=== PATIENT | male | born 1970 | race Two or more races ===

== ENCOUNTER 2018-12-30 19:03 | Inpatient (IN) | payer MEDICAID ==
[~2018-12-30] VITALS: Ht 167.6 cm; Wt 76.2 kg
--- NOTE | 2018-12-30 19:39 | NUR ---
PresentS to the ER with shortness of breath. Patient states being evaluated at [facility] 2 days ago, left AMA. Reports moderate SOB at rest has progressively worsened over the last 2 days. lung sounds clear bilaterally on auscultation. ER MD at bedside to eval pt with orders received. Pt. denies chest pain. Pt also reports chronic meth and marijuana use, last use 2 days ago. Pt aaox4, place pt on cardiac monitoring, continuous pox, o2@2L/nc.
[2018-12-30 19:48] LABS: BASOPHILS # (AUTO) 0.1 /CMM (0.0-0.2); BASOPHILS % (AUTO) 0.9 % (0.0-2.0); EOSINOPHILS % (AUTO) 5.1 % (0.0-6.0); HEMATOCRIT 42 % (39-51); HEMOGLOBIN 14.4 g/dL (13.5-17.5); LYMPHOCYTES # (AUTO) 1.3 /CMM (0.8-4.8); LYMPHOCYTES % (AUTO) 16.8 % (20.0-44.0); MEAN CORPUSCULAR HGB CONC 34 g/dl (31.0-36.0); MEAN CORPUSCULAR VOLUME 89 fL (80-96); MONOCYTES # (AUTO) 0.5 /CMM (0.1-1.30); MONOCYTES % (AUTO) 6.9 % (2.0-12.0); NEUTROPHILS # (AUTO) 5.5 /CMM (1.8-8.9); NEUTROPHILS % (AUTO) 70.3 % (43.0-81.0); PLATELET COUNT (AUTO) 217 /CMM (150-450); RED BLOOD CELL COUNT(AUTO) 4.73 MIL/uL (4.5-6.0); WHITE BLOOD COUNT (AUTO) 7.8 K/uL (4.3-11.0)
[2018-12-30] MEDS ORDERED: LORAZEPAM 1 MG TABLET ONE (19:54)
[2018-12-30 19:59] LABS: CALCIUM, SERUM 8.6 mg/dL (8.5-10.1); CREATININE 1.5 mg/dL (0.6-1.3); POTASSIUM 3.9 mmol/L (3.5-5.1)
[2018-12-30] MEDS ORDERED: LORAZEPAM 1 MG TABLET PO ONE (20:00)
--- NOTE | 2018-12-30 20:16 | NUR ---
HANDKERCHIEF PRESSER AT BEDSIDE TO CXR.
[2018-12-30 20:17] LABS: ALBUMIN 3.1 g/dL (3.4-5.0); BILIRUBIN,DIRECT 0.3 mg/dL (0.0-0.2); BILIRUBIN,TOTAL 0.9 mg/dL (0.2-1.0); TOTAL PROTEIN, SERUM 7.2 g/dL (6.4-8.2)
--- NOTE | 2018-12-30 20:38 | NUR ---
ER MD AT BEDSIDE TALKING TO PT REGARDING LAB RESULTS AND HOSPITAL ADMISSION. PT AGREED. AWAITING BED AVAILABILITY.
[2018-12-30] MEDS ORDERED: NITROGLYCERIN PACKET 1 GM PACKET TD ONE (21:00)
[2018-12-30] MEDS ORDERED: FUROSEMIDE 40 MG/4 ML VIAL IV ONE (21:00)
--- NOTE | 2018-12-30 21:06 | NUR ---
[facility] PAGED MICHELLE COVINGTON FOR ADMISSION
[2018-12-30] MEDS ORDERED: NITROGLYCERIN PACKET 1 GM PACKET ONE (21:10)
[2018-12-30] MEDS ORDERED: FUROSEMIDE 40 MG/4 ML VIAL ONE (21:10)
--- NOTE | 2018-12-30 21:24 | NUR ---
ER SPOKE TO MICHELLE COVINGTON ACNP REGARDING PT ADMISSION. WILL CALL FOR REPORT WHEN BED IS AVAILABLE.
--- NOTE | 2018-12-30 21:38 | NUR ---
MICHELLE COVINGTON ACNP AT BEDSIDE TO GRETCHEN UNDERWOOD.
--- NOTE | 2018-12-30 22:01 | NUR ---
REPORT CALLED TO WORK TICKET DISTRIBUTOR JEM. WILL TRANSPORT PT VIA ACLS PROTOCOL.
[2018-12-30 22:15] VITALS: BP 167/117
--- NOTE | 2018-12-30 22:15 | NUR ---
ADMISSION NOTES: RECEIVED REPORT FROM ED RN. PT BROUGHT OT THE UNIT VIA GURNEY, PT KNOCKED OUT, ASLEEP, AROUSES TO TACTILE STIMULI THEN WILL GO BACK TO SLEEP, SNORING, NEL AT BED SIDE, HELPING ME WITH THE ADMISSION. UNABLE TO COLLECT RELEVANT INFORMATION DUE TO PT'S CONDITION/STATUS AT THIS TIME, PT RECEIVED ATIVAN IN ER. RIGHT AC G 18 PATENT AND FLUSHING WELL, ON HL. PLACED PT ON 2.5 L OXYGEN 98%, NOTED TO BE TACHYPNEIC AT 28, TACHYCARDIA 102 HR, SINUS RHYTHM ON TELE MONITORING HR 95. SKIN ASSESSMENT PERFORMED WITH NEL CHO. INVENTORY OF BELONGINGS COMPLETED BY NEL CHO. BLE OFFLOADED ON PILLOWS. 2 URINAL PLACED WITHIN REACH PT RECEIVED LASIX IN ER FOR CHF. VS TAKEN AND RECORDED. SAFETY PRECAUTIONS FOR FALL INITIATED, CALL LIGHT IN REACH, WILL CONTINUE MONITORING PT.
[2018-12-30 22:30] VITALS: BP 161/119
[2018-12-30 22:45] VITALS: BP 167/117
--- NOTE | 2018-12-30 22:45 | NUR ---
RN NOTES: STILL SLEEPING, AROUSES WHEN CALLED HIS NAME AND TOUCH THEN WILL GO BACK TO SLEEPING AGAIN.
--- NOTE | 2018-12-30 22:46 | NUR ---
RN NOTES: PT IN DEEP SLEEP, SNORING, UNABLE TO COLLECT RELEVANT DATA, WILL UPDATE INTERVENTION/ASSESSMENT ONCE PT MORE AWAKE.
[2018-12-30] MEDS ORDERED: ZOLPIDEM TARTRATE 5 MG TABLET PO PRN (23:30)
[2018-12-30] MEDS ORDERED: ONDANSETRON HCL/PF 4 MG/2 ML VIAL IVP PRN (23:30)
[2018-12-30] MEDS ORDERED: ACETAMINOPHEN 325 MG TABLET PO PRN (23:30)
[2018-12-30] MEDS ORDERED: BUMETANIDE INJ 4 MG in IV NS 0.9% 24 ML IV ONE (23:30)
[2018-12-30] MEDS: ASPIRIN EC 81 MG TABLET.DR PO SCH ×2 (23:30→23:43)
[2018-12-30] MEDS ORDERED: Z GUARD REMEDY 2 OZ OINT TP PRN (23:30)
[2018-12-30 23:41] VITALS: BP 182/131
[2018-12-30] MEDS: CARVEDILOL 3.125 MG TABLET PO ONE (23:43)
[2018-12-30] MEDS: VALSARTAN 80 MG TABLET PO ONE (23:43)
--- NOTE | 2018-12-30 23:48 | NUR ---
RN NOTES: PT AWAKE NOW, BUT STILL SLEEPY, UNABLE TO GIVE ANY PO MEDS AT HIGH RISK FOR ASPIRATION DUE TO CURRENT STATUS, PT RECEIVED ATIVAN IN ER, VERY DROWSY, AROUSES TO INFLICTING PAIN TO NAILBEDS
--- NOTE | 2018-12-30 23:55 | NUR ---
RN NOTES: NOTIFIED MD PASTRY ARTIST REGARDING PT BEING TOO DROWSY, SLEEPING, AROUSES TO PAINFUL STIMULI, MADE AWARE IT IS NOT SAFE FOR PT TO TAKE ANYTHING BY MOUTH AT THIS TIME, INFORMED BP WAS HIGH AT 182/131 HR 106, INFORMED RN NON ADMINISTER PO MEDS SCHED FOR 2330 DUE TO PT'S CONDITION. AWAITING CALL BACK
--- NOTE | 2018-12-30 23:57 | NUR ---
RN NOTES: PER MD SHE WILL PUT A PRN ORDER MED IN A SEC SHE IS REVIEWING ANOTHER PT'S CHART AT THIS TIME
[2018-12-31] VITALS (7 sets, daily range): BP systolic 139–182; BP diastolic 90–131
[2018-12-31] MEDS ORDERED: LABETALOL 20 MG/4 ML VIAL IV PRN
[2018-12-31] MEDS ORDERED: BUMETANIDE INJ 0.25 MG/ML VIAL ONE (00:01)
[2018-12-31] MEDS: CARVEDILOL 3.125 MG TABLET PO ONE (00:10)
[2018-12-31] MEDS: VALSARTAN 80 MG TABLET PO ONE (00:10)
--- NOTE | 2018-12-31 00:10 | NUR ---
BUMEX IV: ORDERED FOR BUMEX IV ADMINISTERED AT THIS TIME, USING BBRAUN PUMP, PROGRAMMED FOR BUMEX 4MG/1ML EQUIVALENT TO 10ML/HR (TOTAL DOSE 40ML) CONNECTED TO IV ACCESS ON RIGHT AC.
--- NOTE | 2018-12-31 00:11 | NUR ---
NON ADMIN OF PO MEDS SCHED FOR 2329: PT BEING TOO DROWSY, SLEEPING, AROUSES TO PAINFUL STIMULI, MADE AWARE IT IS NOT SAFE FOR PT TO TAKE ANYTHING BY MOUTH AT THIS TIME, INFORMED BP WAS HIGH AT 182/131 HR 106, INFORMED MD STALEY NON ADMINISTER PO MEDS SCHED FOR 2329 DUE TO PT'S CONDITION.
--- NOTE | 2018-12-31 00:15 | NUR ---
RN NOTES: DIOVAN, COREG AND ASPIRIN MEDICATIONS WERE OPENED, NOT ADMINISTERED TO PT, NOW WASTING WITH ANOTHER RN REYNA.
[2018-12-31] MEDS ORDERED: LABETALOL HCL IV 100MG VIAL ONE (00:20)
--- NOTE | 2018-12-31 00:27 | NUR ---
PRN TRANDATE: PT'S BP 152/102 HR 98-101, RR 24, PRN TRANDATE ADMINISTERED SLOW IVP, PT ON TELE SINUS RHYTHM, WHILE RADIOCOMMUNICATIONS TECHNICIAN MONITORING HEART RATE AND HEART RHYTHM OF PT WHILE ADMINISTERING MEDICATION, PER RADIOCOMMUNICATIONS TECHNICIAN NO CHANGES IN RHYTHM NOTED DURING COURSE OF ADMINISTERING SAID MEDICATION.
--- NOTE | 2018-12-31 00:35 | NUR ---
LATEST BP FEW MINS AFTER ADMINS TRANDATE: 142/90 HR 80 RR 24, SPO2 97% ON 2.5L OXYGEN, SINUS RHYTHM HR 77
--- NOTE | 2018-12-31 01:41 | NUR ---
RN NOTES: PT ACCIDENTALLY SPILLED THE URINAL INTO HIS BODY, BED BATH PROVIDED TO THE PT, NEW URINAL PROVIDED AND PLACED WITHIN REACH.
--- NOTE | 2018-12-31 01:50 | NUR ---
RN NOTES: PT NOW AWAKE, STATED HE'S SO THIRSTY AND REQUESTING FOR ORANGE JUICE
--- NOTE | 2018-12-31 01:53 | NUR ---
PRN TYLENOL; REQUESTED BY PT FOR C/O HEAD ACHE
--- NOTE | 2018-12-31 04:00 | NUR ---
RN NOTES: NOTED IV PUMP KEPT BEEPING, WHEN CHECKED IT SHOWS KVO, UPON ASSESSMENT, SHOWS PROGRAMMED BUMEX IV COMPLETED.
--- NOTE | 2018-12-31 04:07 | NUR ---
RN NOTES: COLLECTED URINE, SENT TO LAB FOR URINE TOX/DRUG SCREEN
[2018-12-31 05:10] LABS: APPEARANCE,URINE CLEAR (CLEAR); BILIRUBIN,URINE NEGATIVE (NEGATIVE); BLOOD, URINE TRACE-INTA Ery/uL (NEGATIVE); COLOR,URINE YELLOW (YELLOW); KETONES,URINE NEGATIVE (NEGATIVE); LEUKOCYTE ESTERASE ,URINE NEGATIVE (NEGATIVE); NITRITE, URINE NEGATIVE (NEGATIVE); PH,URINE 6.5 (5.0-8.0); PROTEIN,URINE TRACE mg/dl (NEGATIVE); UGLUCOSE NEGATIVE (NEGATIVE); UROBILINOGEN,URINE 0.2 EU/dL (0.2)
--- NOTE | 2018-12-31 05:24 | NUR ---
RN NOTES: NOTIFIED ELECTRICAL APPLIANCE PREPARER MD REGARDING PT'S BP 144/103 HR 81 SPO2 100%, RR 26, PER MD NO NEW ORDERS, WILL CONTINUE MONITORING PT
[2018-12-31 05:25] LABS: BACTERIA,URINE Rare /HPF (None Seen); SQUAMOUS EPITHELIAL CELL,UR Rare /HPF (None Seen)
[2018-12-31 06:23] LABS: BASOPHILS # (AUTO) 0.1 /CMM (0.0-0.2); BASOPHILS % (AUTO) 0.9 % (0.0-2.0); EOSINOPHILS % (AUTO) 3.7 % (0.0-6.0); HEMATOCRIT 42 % (39-51); HEMOGLOBIN 14.3 g/dL (13.5-17.5); LYMPHOCYTES # (AUTO) 1.4 /CMM (0.8-4.8); LYMPHOCYTES % (AUTO) 15.6 % (20.0-44.0); MEAN CORPUSCULAR HGB CONC 34 g/dl (31.0-36.0); MEAN CORPUSCULAR VOLUME 89 fL (80-96); MONOCYTES # (AUTO) 0.7 /CMM (0.1-1.30); MONOCYTES % (AUTO) 8.3 % (2.0-12.0); NEUTROPHILS # (AUTO) 6.3 /CMM (1.8-8.9); NEUTROPHILS % (AUTO) 71.5 % (43.0-81.0); PLATELET COUNT (AUTO) 222 /CMM (150-450); WHITE BLOOD COUNT (AUTO) 8.9 K/uL (4.3-11.0)
[2018-12-31 06:28] LABS: ALBUMIN 3.1 g/dL (3.4-5.0); BILIRUBIN,TOTAL 1.2 mg/dL (0.2-1.0); CALCIUM, SERUM 8.9 mg/dL (8.5-10.1); CREATININE 1.3 mg/dL (0.6-1.3); MAGNESIUM 1.4 mg/dL (1.8-2.4); PHOSPHORUS 3.1 mg/dL (2.5-4.9); POTASSIUM 3.6 mmol/L (3.5-5.1); TOTAL PROTEIN, SERUM 7.1 g/dL (6.4-8.2)
[2018-12-31 06:34] LABS: THYROID STIMULATING HORMONE 1.353 uIU/mL (0.358-3.74)
--- NOTE | 2018-12-31 06:34 | NUR ---
RN CLOSING NOTES: PT IN BED, SLEEPING, ON 1.5L OXYGEN VIA NC, STILL TACHYPNEIC, ON SINUS RHYTHM HR 86. IV ACCESS REMAINS PATENT AND FLUSHING WELL, INFUSING WITH BUMEX 4MG AT 10ML/HR. URINAL WITHIN REACH. VS REMAINS STABLE, NEEDS ATTENDED. SAFETY PRECAUTIONS FOR FALL REMAINS ENGAGED, CALL LIGHT IN REACH, WILL ENDORSE TO DAY RN FOR CONTINUITY OF CARE.
--- NOTE | 2018-12-31 07:10 | NUR ---
GOODYEAR STITCHER NOTES PATIENT IN BED EYES CLOSED EASY TO AROUSE. RESPOND TO VERBAL AND TACTILE STIMULI. NO ACUTE DISTRESS NOTED, BREATHING UNLABORED. NO SOB NOTED. IV ACCESS PATIENT AND INTACT, NO REDNESS OR SWELLING NOTED. SAFETY MEASURES IN PLACE. CALL LIGHT WITHIN REACH. WILL CONTINUE TO MONITOR ACCORDINGLY.
[2018-12-31] MEDS ORDERED: Magnesium 1GM/D5W 100ML PREMIX 100 ML IV SCH (08:30)
[2018-12-31] MEDS ORDERED: CARVEDILOL 3.125 MG TABLET PO SCH (09:00)
[2018-12-31] MEDS: ENOXAPARIN SODIUM 40 MG/0.4 ML DISP.SYRIN SQ SCH ×2 (09:00→09:13)
[2018-12-31] MEDS ORDERED: FUROSEMIDE 40 MG/4 ML VIAL IV SCH (09:00)
[2018-12-31] MEDS: VALSARTAN 80 MG TABLET PO SCH (09:09)
[2018-12-31] MEDS: FUROSEMIDE 40 MG/4 ML VIAL IV SCH ×3 (09:09→17:29)
[2018-12-31] MEDS: POTASSIUM CHLORIDE 20 MEQ TAB.PRT.SR PO SCH ×3 (09:09→11:46)
[2018-12-31] MEDS: Magnesium 1GM/D5W 100ML PREMIX 100 ML IV SCH ×2 (09:12→10:22)
--- NOTE | 2018-12-31 09:25 | NUR ---
EVALUATION ANALYST NOTES PATIENT CHANGED MIND REFUSED LOVENOX , ALREADY OPENED PACKAGE, WASTED MEDICATION WITNESSED BY ANOTHER RN MARY. RISKS AND BENEFITS EXPLAINED TO THE PATIENT, PATIENT STRONGLY REFUSED.
--- NOTE | 2018-12-31 12:22 | NUR ---
Social service consult requested by MARTHA Kaur for homelessness. Pt. is a 48 year old male who was admitted to [facility] for CHF. SW met with pt. bedside. Pt. is alert and oriented x 3. Pt. continued to fall asleep during the assessment but would easily wake up when nudged. Pt. states he is homeless and lives in his car. His car is currently parked outside the hospital. Pt. 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 Pt. has been to a drug rehab in [place] in 2009. Pt. smokes approximately 10 cigarettes per day and smokes marijuana occasionally. SW asked pt. if he is familiar with [employer] and pt. stated no. SW explained the program to the pt. that since he lives in his car, there are designated parking lots in [facility] where pt. can sleep in his car and park it in designated lots that have a bathroom and industrial security analyst. SW to give pt. brochure for [employer]. SW to offer pt. homeless placement/ resources and substance abuse referrals prior to discharge. Homeless Waiver to be signed by the pt. at discharge.
--- NOTE | 2018-12-31 18:50 | NUR ---
RN medsur opening notes Pt is alert and oriented X4. Pt's family at the bed side. Pt denies any pain or discomfort at this time. Respiration is clear and unlabored. No SOB. No nausea or vomiting. IV sites on RAC # 18G is intact, and patent an SL. Safety precautions is maintained. Bed at low position and call light is within reach. Instructed to call. Will continue to monitor and assist needs.
--- NOTE | 2018-12-31 19:00 | NUR ---
MS RN NOTES PATIENT IN BED ALERT ORIENTED X 4. NO ACUTE DISTRESS NOTED, BREATHING UNLABORED. NO SOB NOTED. IV ACCESS PATENT AND INTACT, NO REDNESS OR SWELLING NOTED. DUE MEDICATIONS GIVEN, NO ASE NOTED.NEEDS ATTENDED AND ANTICIPATED. KEPT CLEAN DRY AND COMFORTABLE. SAFETY MEASURES IN PLACE. CALL LIGHT WITHIN REACH. WILL ENDORSE TO NIGHT NURSE FOR CONTINUITY OF CARE.
--- NOTE | 2018-12-31 19:22 | NUR ---
PRELIMINARY ECHO FINDINGS SHOWED EF 20-25%~. ADVISED INITIAL RESULTS TO ATTENDING RN (DREW).
--- NOTE | 2018-12-31 21:54 | NUR ---
RN medsur notes Pt is resting in bed comfortably with eyes closed. Awaken easily. NO SOB. Denies any pain or discomfort. Help elevate the head of bed 40 degree and gave extra pillow for comfort. Will continue to monitor.
--- NOTE | 2019-01-01 06:52 | NUR ---
RN medsurg closing notes Pt is alert and oriented X4. Pt is resting in bed comfortably with eyes closed. Awaken easily. No S/S of distress noted. Respiration is clear. No SOB. No pain or any discomfort at this time. IV sites is intact, patent and SL. All needs met. Safety precautions is maintained. Bed at low position, bed locked, side rails upX2 and call light is within reach. Will endorse to morning for JANETTE.
[2019-01-01 08:00] VITALS: BP 163/121
[2019-01-01] MEDS: ENOXAPARIN SODIUM 40 MG/0.4 ML DISP.SYRIN SQ SCH (08:19)
[2019-01-01] MEDS: VALSARTAN 80 MG TABLET PO SCH (08:20)
--- NOTE | 2019-01-01 08:30 | NUR ---
dr. tenorio in ,orders given.spoke to pt. about health and drug use.ekmal culver today.
[2019-01-01] MEDS ORDERED: AMLODIPINE BESYLATE 5 MG TABLET PO SCH (09:00)
[2019-01-01] MEDS ORDERED: SPIRONOLACTONE 25 MG TABLET PO SCH (09:00)
--- NOTE | 2019-01-01 10:30 | NUR ---
given additional bp meds.
[2019-01-01 10:46] VITALS: BP 140/90
--- NOTE | 2019-01-01 11:45 | NUR ---
social service in and gave pt. resources.pt's girlfriend at bedside.belonging sheet signed.
--- NOTE | 2019-01-01 11:47 | NUR ---
PT. BEING DISCHARGED. REFUSED DC PHOTOS.
--- NOTE | 2019-01-01 12:05 | NUR ---
all papers signed.escorted to lobby by manager mortgage.
--- NOTE | 2019-01-01 12:50 | NUR ---
pt. and girlfriend very anxious to leave and out at desk several times.
--- NOTE | 2019-01-01 13:30 | NUR ---
now dr. calderon here leaving several prescriptions for pt.rn called referral number on chart for a person by the name of pete.left info for pete regarding rxs for pt.rxs at [facility] front press[facility] with english language learner tutor.
--- NOTE | 2019-01-01 17:30 | NUR ---
pt. returned to bulk picker prescriptions that dr. calderon left for him.copy of rx left on chart.
== END 2019-01-01 12:05 | disposition home or self-care (01) | DRG 194 ==
LOC: ER 19:03 → TELE 22:05 → MED 12-31 15:48
PROVIDERS: ADMIT Registered Nurse; ATTEND Internal Medicine
DX: I11.0 Hypertensive heart disease with heart failure (principal); J96.00 Acute respiratory failure, unspecified whether with hypoxia or hypercapnia; N17.0 Acute kidney failure with tubular necrosis; E46 Unspecified protein-calorie malnutrition; E66.9 Obesity, unspecified; Z68.27 Body mass index [BMI] 27.0-27.9, adult; E83.42 Hypomagnesemia; Z59.0 Homelessness; Z76.5 Malingerer [conscious simulation]; E88.09 Other disorders of plasma-protein metabolism, not elsewhere classified; F12.10 Cannabis abuse, uncomplicated; F15.10 Other stimulant abuse, uncomplicated; I50.21 Acute systolic (congestive) heart failure
CPT/HCPCS: 36415; 71045-TC; 80048-TC; 80053-TC; 80061-TC; 80076-TC; 80305; 81000-TC; 83540-TC; 83735-TC; 83880; 84100-TC; 84443-TC; 84484-TC; 85025-TC; 87081-TC; 93307-TC; G0378; J1650; J1940; J3475; J3490; J7030; J7042

== ENCOUNTER 2019-02-16 12:35 | Emergency (ER) | payer MEDICAID ==
[~2019-02-16] VITALS: Ht 167.6 cm; Wt 83.9 kg
--- NOTE | 2019-02-16 12:45 | NUR ---
48 YEAR OLD MALE BIB BY SELF C/O SHORTNESS OF BREATH STARTED THIS MORNING, DENIES ANY PAIN. ALERT AND ORIENTED X3, BREATHING EVEN AND UNLABORED WITH NO DISTRESS NOTED. AWAITING TO BE SEEN BY
[2019-02-16 13:21] VITALS: BP 167/96
--- NOTE | 2019-02-16 13:22 | NUR ---
Patient discharged to home in stable condition. Written and verbal after care instructions given. Patient verbalizes understanding of instruction.
== END 2019-02-16 13:23 | disposition home or self-care (01) ==
LOC: ER 12:37
DX: I11.0 Hypertensive heart disease with heart failure (principal); I50.9 Heart failure, unspecified

== ENCOUNTER 2019-07-05 05:19 | Inpatient (IN) | payer MEDICAID, OTHER ==
[2019-07-05] VITALS (38 sets, daily range): BP systolic 127–190; BP diastolic 40–136
[~2019-07-05] VITALS: Ht 167.6 cm; Wt 88.9 kg
--- NOTE | 2019-07-05 05:33 | NUR ---
RECEIVED PATIENT WITH COMPLAINT OF SOB AND CP 02/28, LOCALIZED. PER PATIENT HE WAS AWAKEN WITH SOB. BP 185/135. MD AT BEDSIDE. ORDERS NOTED AND CARRIED OUT.
[2019-07-05] MEDS ORDERED: NTG 50 MG/D5W250 ML BOTTL 250 ML IV ONE (05:39)
--- NOTE | 2019-07-05 05:40 | NUR ---
INITIATED PERIPHERAL IV ACCESS RFA#18, GOOD BLOOD RETURN NOTED AFTER THE 2ND ATTEMPT. SECURED ACCORDINGLY.
--- NOTE | 2019-07-05 05:47 | NUR ---
STARTED ON NTIRO DRIP @200MCG/MIN ORDERED. BP 185/135.
[2019-07-05 05:53] LABS: BASOPHILS # (AUTO) 0.1 /CMM (0.0-0.2); EOSINOPHILS % (AUTO) 5.3 % (0.0-6.0); HEMATOCRIT 45 % (39-51); HEMOGLOBIN 15.2 g/dL (13.5-17.5); LYMPHOCYTES # (AUTO) 1.9 /CMM (0.8-4.8); LYMPHOCYTES % (AUTO) 23.5 % (20.0-44.0); MEAN CORPUSCULAR HGB CONC 34 g/dl (31.0-36.0); MEAN CORPUSCULAR VOLUME 90 fL (80-96); MONOCYTES # (AUTO) 0.7 /CMM (0.1-1.30); MONOCYTES % (AUTO) 8.4 % (2.0-12.0); NEUTROPHILS # (AUTO) 5.1 /CMM (1.8-8.9); NEUTROPHILS % (AUTO) 61.8 % (43.0-81.0); PLATELET COUNT (AUTO) 199 /CMM (150-450); RED BLOOD CELL COUNT(AUTO) 5.04 MIL/uL (4.5-6.0); WHITE BLOOD COUNT (AUTO) 8.2 K/uL (4.3-11.0)
[2019-07-05] MEDS ORDERED: FUROSEMIDE 40 MG/4 ML VIAL ONE (05:54)
[2019-07-05] MEDS ORDERED: NTG 50 MG/D5W250 ML BOTTL 250 ML IV PRN (06:00)
[2019-07-05] MEDS ORDERED: FUROSEMIDE 40 MG/4 ML VIAL IV ONE (06:00)
[2019-07-05 06:11] LABS: CALCIUM, SERUM 8.5 mg/dL (8.5-10.1); CREATININE 1.2 mg/dL (0.6-1.3)
--- NOTE | 2019-07-05 06:23 | NUR ---
AT BEDSIDE. V/S RECHECKED. WITH ORDER TO STOP ONGOING NITRO. NOTED AND CARRIED OUT. PATIENT NOTED WITH URINE OUTPUT AT THIS TIME 375ML CLEAR YELLOW URINE.
--- NOTE | 2019-07-05 07:10 | NUR ---
ENDORSED TO REBEKA SUN FOR JANETTE.
--- NOTE | 2019-07-05 07:16 | NUR ---
REPORT RECEIVED FROM REBEKA JAMES.
--- NOTE | 2019-07-05 07:21 | NUR ---
URINE OUTPUT 500 ML. CLEAR AND YELLOW W/ NO FOUL ODOR.
[2019-07-05] MEDS ORDERED: NITROGLYCERIN PACKET 1 GM PACKET ONE (07:24)
[2019-07-05] MEDS ORDERED: NITROGLYCERIN PACKET 1 GM PACKET TOP ONE (07:30)
--- NOTE | 2019-07-05 07:52 | NUR ---
URINE OUTPUT @ 700 ML. CLEAR AND YELLOW. NO FOUL ORDER
--- NOTE | 2019-07-05 08:00 | NUR ---
called for phoebe bed
[2019-07-05] MEDS ORDERED: SPIR25TA PO (08:21)
[2019-07-05] MEDS ORDERED: AMLO5TAB4 PO (08:21)
[2019-07-05] MEDS ORDERED: VALS80TA2 PO (08:21)
[2019-07-05] MEDS ORDERED: ASPI-1169 PO (08:21)
--- NOTE | 2019-07-05 08:44 | NUR ---
URINE OUPUT 500 ML. YELLOW AND CLEAR W/ NO FOUL ODOR.
--- NOTE | 2019-07-05 08:54 | NUR ---
ROOM GIVEN: 252 ICU
--- NOTE | 2019-07-05 08:56 | NUR ---
PT IS BACK ON NITRO DIP PER ER MD ORDER. BP IS @ 189/133
--- NOTE | 2019-07-05 09:06 | NUR ---
report given to charge nurse ruddy. awaiting transfer to icu.
--- NOTE | 2019-07-05 09:30 | NUR ---
MANAGER CONSUMER INSIGHTS RECEIVED PT FROM ER BY KATHLEEN WITH MONITOR. REPORT RECEIVED. PT AWAKE ET ALERT, FOLLOWING COMMANDS. MOVING ALL EXTREMITIES. PT'S BP REMAINS ELEVATED DESPITE NTG DRIP. PT C/O HEADACHE. DR BAHENA IN TO SEE PT. NTG DRIP STOPPED. PO BP MEDS TO BE GIVEN WHEN AVAILABLE.
--- NOTE | 2019-07-05 10:00 | NUR ---
RN NOTES RECEIVED PT ON BED, A/OX3, ON 2L O2 N/C , C/O SOB, ON TELE SR HR IN 70'S , PT HAS HIGH BP AND H/A . DR BAHENA NOTIFIED, NEW ORDER RECEIVED , PT IS ABLE TO USE URINAL , R AND L FOREARM IV SITES G 18 , CLEAN, DRY AND INTACT . SR UP x3, CALL LIGHT WITHIN EASY REACH, CONTINUE TO MONITOR .
[2019-07-05] MEDS: ASPIRIN 81 MG TAB.CHEW PO SCH (10:23)
[2019-07-05] MEDS: SPIRONOLACTONE 25 MG TABLET PO SCH (10:23)
[2019-07-05] MEDS: AMLODIPINE BESYLATE 5 MG TABLET PO SCH (10:24)
[2019-07-05] MEDS: hydrALAZINE HCL 50 MG TABLET PO SCH ×3 (10:24→16:24)
[2019-07-05] MEDS: VALSARTAN 80 MG TABLET PO SCH (10:25)
--- NOTE | 2019-07-05 12:15 | NUR ---
RN NOTES PT C/O H/A, DR LEOS NOTIFED, NEW ORDER RECEIVED . CONTINUE TO MONITOR.
[2019-07-05] MEDS ORDERED: MORPHINE SULFATE INJ 2 MG/ML DISP.SYRIN IV ONE (12:30)
[2019-07-05] MEDS ORDERED: Z GUARD REMEDY 2 OZ OINT TP PRN (12:30)
[2019-07-05] MEDS ORDERED: ONDANSETRON HCL/PF 4 MG/2 ML VIAL IVP PRN (12:30)
[2019-07-05] MEDS ORDERED: ACETAMINOPHEN 650 MG/20.3 ML UDC PO ONE (12:30)
[2019-07-05] MEDS ORDERED: hydrALAZINE HCL IV 20 MG VIAL IV PRN (12:30)
[2019-07-05] MEDS ORDERED: BUMETANIDE INJ 6 MG in IV NS 0.9% 36 ML IV ONE (12:30)
[2019-07-05] MEDS ORDERED: SUCRALFATE 1 G TABLET PO ONE (18:00)
[2019-07-05] MEDS ORDERED: MAG HYDROX/AL HYDROX/SIMETH 30 ML UDC PO PRN (18:00)
--- NOTE | 2019-07-05 18:05 | NUR ---
RN NOTES PT C/O EPIGASTRIC PAIN AFTER DINNER, DR LEOS NOTIFED, MAALOX AND CARAFATE ORDER , PT MEDICATED PER MD ORDER. PT STATED FEELS MUCH BETTER AFTER MEDS GIVEN , VSS STABLE, CONTINUE TO MONITOR.
--- NOTE | 2019-07-05 19:00 | NUR ---
RN NOTES PT REFUSED TO BE TRANSFERD TO TELE FLOOR VIA BED, STATED WANTS TO WALK . PT TRANSFERRED TO ROOM 323-1 TELE [facility]AUTS AMBULATORY WITH ALL HIS BELONGINGS IN STABLE CONDITION .
--- NOTE | 2019-07-05 19:10 | NUR ---
FINANCIAL SYSTEMS ADMINISTRATOR NOTES Received report from RN Marion. Patient on bed, asleep easily awaken, A/O x4. On Bumex 1mcg/hr on going, initiated from ICU. On RA, no SOB/respiratory distress noted. No complaints made at this time. Provided urinal at bedside. On bedside monitor with NSR noted at this time. Kept on bed clean, dry and comfortable. On fall and aspiration precautions. Call light at bedside. Will continue to monitor accordingly.
--- NOTE | 2019-07-05 22:38 | NUR ---
LIP CUTTER AND SCORER NOTES S/P BUMEX infusion 1 hr ago. BP 135/75mmHg, on NSR HR 90+'s.
--- NOTE | 2019-07-05 23:26 | NUR ---
DIGITIZER OPERATOR NOTES PT COMPLAINTS LEGS CRAMPS AND HEADACHE. PATIENT UNEASY TO STAY ON BED, SCREAMING FOR PAIN AND CRAMPS. APPLIED DORSIFLEXION TO BOTH LEGS, ABLE TO ALLEVIATED CRAMPING BUT WORSEN IF PRESSURE IS RELEASED. LANDING SUPPORT SPECIALIST MD NOTIFIED WITH ORDERS NOTED AND CARRIED OUT.
[2019-07-05] MEDS ORDERED: LORAZEPAM INJ 2 MG/ML VIAL IV PRN (23:30)
[2019-07-05] MEDS ORDERED: ACETAMINOPHEN 325 MG TABLET PO PRN (23:30)
--- NOTE | 2019-07-05 23:54 | NUR ---
MANAGER PRESENTATION NOTES Kept patient back to bed. Instructed about the possible S/E of Ativan. On fall precautions. Call light within easy reach. Per patient leg cramps decreased. Will continue to monitor accordingly.
[2019-07-06 04:00] VITALS: BP 146/72
--- NOTE | 2019-07-06 06:38 | NUR ---
RN CLOSING NOTES Patient asleep, easily awaken. Medicated for pain, noted effective. BP maintained WNL. On tele monitor with NSR noted. Afebrile the whole shift, no SOB/respiratory distress noted. All nursing needs attended. Kept on bed clean, dry and comfortable. Call light within easy reach. On fall and aspiration precautions.
[2019-07-06 06:47] LABS: THYROID STIMULATING HORMONE 1.091 uIU/mL (0.358-3.74)
[2019-07-06 06:59] LABS: BASOPHILS # (AUTO) 0.1 /CMM (0.0-0.2); BASOPHILS % (AUTO) 0.6 % (0.0-2.0); EOSINOPHILS % (AUTO) 1.7 % (0.0-6.0); HEMATOCRIT 49 % (39-51); HEMOGLOBIN 16.5 g/dL (13.5-17.5); LYMPHOCYTES # (AUTO) 1.5 /CMM (0.8-4.8); LYMPHOCYTES % (AUTO) 12.6 % (20.0-44.0); MEAN CORPUSCULAR HGB CONC 34 g/dl (31.0-36.0); MEAN CORPUSCULAR VOLUME 89 fL (80-96); MONOCYTES # (AUTO) 1.5 /CMM (0.1-1.30); MONOCYTES % (AUTO) 13.3 % (2.0-12.0); NEUTROPHILS # (AUTO) 8.3 /CMM (1.8-8.9); NEUTROPHILS % (AUTO) 71.8 % (43.0-81.0); PLATELET COUNT (AUTO) 240 /CMM (150-450); RED BLOOD CELL COUNT(AUTO) 5.52 MIL/uL (4.5-6.0); WHITE BLOOD COUNT (AUTO) 11.6 K/uL (4.3-11.0)
[2019-07-06 07:04] LABS: ALBUMIN 2.8 g/dL (3.4-5.0); BILIRUBIN,TOTAL 1.8 mg/dL (0.2-1.0); CALCIUM, SERUM 8.7 mg/dL (8.5-10.1); CREATININE 1.5 mg/dL (0.6-1.3); MAGNESIUM 1.7 mg/dL (1.8-2.4); PHOSPHORUS 3.3 mg/dL (2.5-4.9); POTASSIUM 3.5 mmol/L (3.5-5.1)
--- NOTE | 2019-07-06 07:35 | NUR ---
MS/RN NOTE THE PATIENT IS RECEIVED IN BED. PATIENT ALERT AND ORIENTED X4. DENIES SOB. IN ROOM AIR. RESPIRATION REGULAR AND UNLABORED. DENIES PAIN. THE PATIENT IN NO APPARENT DISTRESS. RFA G 18 AND LFA G 18 PATENT AND SALINE LOCKED. BED LOW AND LOCKED. SIDE RAILS UP X3. CALL LIGHT WITHIN REACH. WILL CONTINUE TO MONITOR.
[2019-07-06 08:00] VITALS: BP 161/89
[2019-07-06] MEDS: SPIRONOLACTONE 25 MG TABLET PO SCH (09:34)
[2019-07-06] MEDS: ASPIRIN 81 MG TAB.CHEW PO SCH (09:35)
[2019-07-06] MEDS: hydrALAZINE HCL 50 MG TABLET PO SCH ×2 (09:36→12:55)
[2019-07-06] MEDS: VALSARTAN 80 MG TABLET PO SCH (09:36)
[2019-07-06] MEDS: AMLODIPINE BESYLATE 5 MG TABLET PO SCH (09:37)
[2019-07-06] MEDS: Magnesium 1GM/D5W 100ML PREMIX 100 ML IV SCH ×2 (12:30→12:45)
[2019-07-06 12:55] VITALS: BP 149/61
--- NOTE | 2019-07-06 13:45 | NUR ---
MS/RN NOTE THE PATIENT REFUSED SECOND BAG OF MAGNESIUM 1G DESPITE EXPLAINING RISKS AND BENEFITS MULTIPLE TIMES. DR LEOS IS MADE AWARE.
--- NOTE | 2019-07-06 14:20 | NUR ---
MS/RN NOTE THE PATIENT ALERT AND ORIENTED X4. DENIES PAIN AT THIS TIME. IN ROOM AIR AND SATURATION IS AT 97%. RESPIRATION REGULAR AND UNLABORED. THE PATIENT IN NO APPARENT DISTRESS. THE PATIENT VERBALIZED WANTING TO LEAVE AMA. ACCORDING TO THE PATIENT WANTS TO LEAVE THE HOSPITAL AMA BECAUSE HE NEEDS TO SEE HIS GIRLFRIEND. THE PATIENT WAS GIVEN RISKS AND BENEFITS, HOWEVER, THE PATIENT INSISTED TO LEAVE AMA.THE PATIENT LEFT THE HOSPITAL BY HIMSELF. MADE AWARE.
--- NOTE | 2019-07-07 08:47 | NUR ---
Social service consult requested for homelessness. Pt is a 48 year old male who was admitted to [facility] for CHF, hypertensive urgency. Pt was resting in his bed and was oriented x 4 (person, place, time, and situation). Pt states he is ambulatory. Pt is homeless and states he has been homeless for a couple of years. Pt states he does not currently receive any financial government benefits but he is interested in getting help finding employment. 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 ANKIT provided pt with a referral to Meghna, a social service and employment agency, [address] [facility], [facility] [address]; [phone]. Pt denies drug, alcohol, marijuana, and cigarette use. ANKIT provided pt with housing and fdc options, including the following winter fdc product picker locations: [facility]; product picker address: [address] [place], [place] [address]one [facility] [place] [address], [place] [facility] [employer] [facility]: [address] [place] [address], and [facility]: [address] [facility] [address]. ANKIT also provided pt with the following housing agency resource referrals: [facility] [address] [facility], [address], [facility] [address] [place] [address]; , [facility] [address] [facility] [place] [address]; , and [facility] [address] [place] [address]; . And [facility] Homeless Resources Directory and health and mental health clinic referrals were also provided. Pt denies suicidal and homicidal ideation at this time. Pt denies auditory and visual hallucinations at this time. Pt has signed homeless waiver and it has been placed in his medical chart. Pt will require a TAP card upon discharge. No other services needed at this time. SW is available if needed.
== END 2019-07-06 14:25 | disposition left against medical advice (07) | DRG 194 ==
LOC: ER 05:22 → ICU 09:01 → TELE 19:47
PROVIDERS: ADMIT Nurse Practitioner Acute Care; ATTEND Nurse Practitioner Acute Care
DX: I11.0 Hypertensive heart disease with heart failure (principal); J96.01 Acute respiratory failure with hypoxia; N17.0 Acute kidney failure with tubular necrosis; I42.9 Cardiomyopathy, unspecified; Z59.0 Homelessness; Z91.19 Patient's noncompliance with other medical treatment and regimen; F15.90 Other stimulant use, unspecified, uncomplicated; I50.41 Acute combined systolic (congestive) and diastolic (congestive) heart failure
CPT/HCPCS: 36415; 71045-TC; 80048-TC; 80053-TC; 80061-TC; 80305; 83540-TC; 83735-TC; 83880; 84100-TC; 84443-TC; 84484-TC; 85025-TC; 87081-TC; 93307-TC; A4216; G0378; J0360; J1940; J2060; J2270; J3475; J3490; J7030

== ENCOUNTER 2019-08-14 03:15 | Inpatient (IN) | payer OTHER ==
[~2019-08-14] VITALS: Ht 170.2 cm; Wt 86.2 kg
[~2019-08-14 03:15] MED LIST: AMLO5TAB4 PO; ASPI-1169 PO; SPIR25TA PO; VALS80TA2 PO
[2019-08-14] MEDS ORDERED: NITROGLYCERIN 0.4 MG/TAB BOTTLE SL ONE (03:30)
--- NOTE | 2019-08-14 03:30 | NUR ---
BIBSELF TO ER BED 3. AAOX4. NOTED WITH MOD RESP DISTRESS, SOB, BREATHING RAPID AND SHALLOW. PT AMBULATORY. C/O SOB X 3 DAYS AND CHEST PAIN THAT HE HAS BEEN HAVING FOR THE PAST 6 MONTHS. PER PT, SOB IS EXACERBATED BY MOVING, DESCRIBED "IF I WALK DOWN THE RUSSELL, ILL BE SHORT OF BREATH". PT CHEST PAIN IS LOCATED ON L CHEST AREA, RADIATING TO HEAD, 8/10 THROBBING SENSATION. MD WAS AT BEDSIDE FOR EVAL. ORDERS, RECEIVED NOTED AND CARRIED OUT. IV LINE OBTAINED ON THE R AC 18G. BLOOD DRAWN AND GIVEN TO CHILD NEUROLOGIST.PT ON MONITOR. O2 VIA NC GIVEN @ 2LPM.
[2019-08-14 03:35] LABS: BASOPHILS # (AUTO) 0.1 /CMM (0.0-0.2); EOSINOPHILS % (AUTO) 4.4 % (0.0-6.0); HEMATOCRIT 45 % (39-51); LYMPHOCYTES # (AUTO) 1.9 /CMM (0.8-4.8); LYMPHOCYTES % (AUTO) 21.5 % (20.0-44.0); MEAN CORPUSCULAR HGB CONC 33 g/dl (31.0-36.0); MEAN CORPUSCULAR VOLUME 90 fL (80-96); MONOCYTES # (AUTO) 0.7 /CMM (0.1-1.30); MONOCYTES % (AUTO) 7.6 % (2.0-12.0); NEUTROPHILS # (AUTO) 5.9 /CMM (1.8-8.9); NEUTROPHILS % (AUTO) 65.5 % (43.0-81.0); PLATELET COUNT (AUTO) 217 /CMM (150-450); RED BLOOD CELL COUNT(AUTO) 5.03 MIL/uL (4.5-6.0)
[2019-08-14 03:43] LABS: CREATININE 1.7 mg/dL (0.6-1.3); POTASSIUM 4.2 mmol/L (3.5-5.1)
[2019-08-14] MEDS ORDERED: NITROGLYCERIN 0.4 MG/TAB BOTTLE ONE (03:50)
[2019-08-14 03:55] LABS: ALBUMIN 3.1 g/dL (3.4-5.0); BILIRUBIN,DIRECT 0.4 mg/dL (0.0-0.2); BILIRUBIN,TOTAL 0.8 mg/dL (0.2-1.0); TOTAL PROTEIN, SERUM 7.5 g/dL (6.4-8.2)
--- NOTE | 2019-08-14 03:57 | NUR ---
FIRST NITRO 0.4MG SL GIVEN AT 0351. AFTER 5 MIN PT VERBALIZED RELIEF FROM 8/10 TO 6/10. PLANNED TO GIVE 1 MORE NITRO 0.4MG SL BUT PT DOES NOT WANT ANOTHER ONE DESPITE HIM STILL HAVING 6/10 PAIN. MADE AWARE.
[2019-08-14] MEDS ORDERED: ASPIRIN 325 MG TABLET PO ONE (04:30)
[2019-08-14] MEDS ORDERED: ASPIRIN 325 MG TABLET ONE (04:37)
[2019-08-14] MEDS ORDERED: ACETAMINOPHEN ES 500 MG TABLET ONE (04:37)
--- NOTE | 2019-08-14 04:40 | NUR ---
PT C/O HEADACHE, MADE AWARE. VERBAL ORDER RECEIVED FOR TYLENOL 1000MG PO X 1
[2019-08-14] MEDS ORDERED: ACETAMINOPHEN ES 500 MG TABLET PO ONE (05:00)
--- NOTE | 2019-08-14 05:10 | NUR ---
PT NOTED WITH BP OF 183/135. MADE AWARE. ORDERED TO GIVE NITRO 0.4SL BUT PT REFUSED BECAUSE OF HIS POUNDING HEADACHE. PT ALREADY RECEIVED TYLENOL BUT STILL NOT INEFFECT. PT WANTED TO WAIT BEFORE HE TAKES ANOTHER NITROGLYCERIN. MD AWARE.
--- NOTE | 2019-08-14 06:00 | NUR ---
REPORT GIVEN TO REBEKA SNEED FOR JANETTE
[2019-08-14] MEDS ORDERED: hydrALAZINE HCL IV 20 MG VIAL ONE (06:02)
--- NOTE | 2019-08-14 06:08 | NUR ---
MD MAOED TO GIVE APRESOLINE 10MG IV X 1 TO ADDRESS BP OF 185/135.
[2019-08-14] MEDS ORDERED: hydrALAZINE HCL IV 20 MG VIAL IV PRN (06:30)
[2019-08-14 06:50] VITALS: BP 197/118
--- NOTE | 2019-08-14 06:50 | NUR ---
OPERATIONS MANAGER ASSISTANT OPENING/ CLOSING NOTE RECIEVED PATIENT VIA GURNEY BY FINANCE LECTURER, AND EMT TECH. PATIENT A/OX4. ON OXYGEN 2L/MIN VIA NASAL CANNULA. PATIENT REPORTS FEELING SOB. O2SAT 98-99%. RESPIRATIONS ARE TACHYPNEIC. EXTERNAL TELE MONITOR READS SR WITH PAC'S HR 89. IN NO APPARENT DISTRESS. PATIENT MADE COMFORTABLE, INFORMED DAY NURSE WILL CONTINUE ASSESSMENT AND ADMISSION PROCESS. IV ACCESS NOTED IN RAC #18 PATENT AND SALINE LOCKED. BED IS LOW AND LOCKED, HOB ELEVATED IN SEMI FOWLERS, SIDE RIALS UP X2, BED ALARM ON. CALL LIGHT WITHIN REACH. VITAL SIGNS TAKEN, REPORTED ON FLOW SHEET. WILL ENDORSE TO NEXT SHIFT.
--- NOTE | 2019-08-14 06:56 | NUR ---
PT TRANSPORTED TO UNIT ON [place] WITH EMT AND RN AT BEDSIDE WITH ACLS PROTOCOL. NAD NOTED DURING TRANSPORT.
--- NOTE | 2019-08-14 07:20 | NUR ---
RN NOTE; PATIENT RECEIVED NEW ADMISSION IN AM ALERT AWAKE ORIENTED, REFUSED TO TALK FOR ADMISSION/INITIAL ASSESSMENT, STATED THAT "WANTS TO SLEEP RIGHT NOW". RESPECT PATIENT RIGHTS. ON 2 lpm o2 VIA NC, NO BREATHING DISTRESS NOTED. SAFETY MEASURES OBSERVED. ENCOURAGE PATIENT TO USE CALL LIGHT FOR ASSISTANCE. CONTINUE WITH PLAN OF CARE.
[2019-08-14 08:00] VITALS: BP 171/123
--- NOTE | 2019-08-14 09:00 | NUR ---
RN NOTE: CHITO PICKARD DNP IS AWARE REGARDING SBP>170 & NEED ADMISSION ORDERS. CONTINUE TO MONITOR.
[2019-08-14] MEDS: SPIRONOLACTONE 25 MG TABLET PO SCH (09:58)
[2019-08-14] MEDS: ASPIRIN 81 MG TAB.CHEW PO SCH (09:59)
[2019-08-14] MEDS: AMLODIPINE BESYLATE 5 MG TABLET PO SCH (09:59)
[2019-08-14] MEDS: VALSARTAN 80 MG TABLET PO SCH (09:59)
[2019-08-14] MEDS ORDERED: HYDROCODONE/APAP 5/325MG 1 EACH TABLET PO PRN (10:00)
[2019-08-14] MEDS ORDERED: MAGNESIUM HYDROXIDE 30 ML UDC PO PRN (10:00)
[2019-08-14] MEDS ORDERED: ONDANSETRON HCL/PF 4 MG/2 ML VIAL IVP PRN (10:00)
[2019-08-14] MEDS ORDERED: ZOLPIDEM TARTRATE 5 MG TABLET PO PRN (10:00)
[2019-08-14] MEDS ORDERED: ACETAMINOPHEN 325 MG TABLET PO PRN (10:00)
[2019-08-14] MEDS ORDERED: Z GUARD REMEDY 2 OZ OINT TP PRN (10:00)
--- NOTE | 2019-08-14 10:00 | NUR ---
RN NOTE: PATIENT REFUSED SKIN ASSESSMENT. EXPLAINED IMPORTANCE OF SKIN ASSESSMENT/ADMISSION ASSESSMENT. PT REFUSED SKIN ASSESSMENT. ANSWERED FEW ADMISSION QUESTIONS. WILL CONTINUE TO MONITOR.
[2019-08-14] MEDS ORDERED: FUROSEMIDE 40 MG/4 ML VIAL IV ONE (10:30)
[2019-08-14] MEDS: HEPARIN SODIUM, PORCINE 5000 UNITS/1 ML VIAL SQ SCH ×2 (11:10→20:16)
[2019-08-14 11:27] LABS: CHOLESTEROL 142 mg/dL (<200); HDL CHOLESTEROL 41 mg/dL (40-60); LDL 97 mg/dL (0-99); TRIGLYCERIDES 51 mg/dL (30-150)
--- NOTE | 2019-08-14 11:36 | NUR ---
Social service consult requested by Dr. Way for homelessness. Per chart review, pt is a 49-year-old male who came to [facility] for SOB. MARINE DRAFTER met with pt. bedside. MARINE DRAFTER introduced self and explained her role. Pt was resting in his bed at time of assessment. Pt is alert and oriented x 4. Pt states he is ambulatory and independent with his ADLs. . Pt is homeless and states he has been homeless for a couple of years. Pt states he does not currently receive any financial government benefits at this time. MARINE DRAFTER encouraged pt to apply for GR and Food stamps. 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 Pt reported to using speed and marijuana. Pt reported to using both drugs yesterday. Pt denies alcohol use. Pt reports to smoke 1/2 pack of cigarettes per day. Pt denies suicidal and homicidal ideation at this time. Pt denies auditory and visual hallucinations at this time. MARINE DRAFTER provide pt with active listening and supportive counseling. Pt was provided pt with housing and prison options, including the following winter prison burr picker locations: [facility]; burr picker address: [address] [place] [address], [place] [employer] [place]: [address] [place] [address], and [facility]: [address] [facility] [address]. also provided pt with the following housing agency resource referrals: [facility] [address] [facility], [address], [facility] [address] [place] [address]; , [facility] [address] [place] [address]; , and [facility] [address] [place] [address]; . And [facility] Homeless Resources Directory and health and mental health clinic referrals were also provided. Pt will require a TAP card upon discharge. Homeless patient waiver form to be signed by the pt upon discharge. No other social service needs are requested at this time. MARINE DRAFTER updated pt's bedside RN and case hardener Aleida regarding pt's discharge plan.
[2019-08-14 12:00] VITALS: BP 154/99
[2019-08-14 16:00] VITALS: BP 144/86
[2019-08-14] MEDS: FUROSEMIDE 40 MG/4 ML VIAL IV SCH (18:21)
--- NOTE | 2019-08-14 18:42 | NUR ---
RN NOTE; PATIENT REMAINS ALERT AWAKE ORIENTED. ON ROOM AIR AT THIS TIME. NO BREATHING DISTRESS NOTED. PER PATIENT FEELING BETTER THAN THIS MORNING. NO FALL/INJURY NOTED. REFUSED TO DO SKIN ASSESSMENT. WILL TRY AGAIN. SAFETY MEASURES OBSERVED. AMBULATORY, STEADY GAIT. CONTINUE TO MONITOR.
--- NOTE | 2019-08-14 19:50 | NUR ---
JAVA DEVELOPER ARCHITECT OPENING NOTE PATIENT IN BED ASLEEP FROM REPORT FROM AM NURSE PATIENT DOES NOT WANT TO BE BOTHERED. BUT ON THE MONITOR PATIENT WAS SR IN THE 80'S. ALL SAFETY PRECAUTIONS APPLIED. WILL CONTINUE TO MONITOR PATIENT FOR JANETTE.
[2019-08-14 20:00] VITALS: BP 146/91
[2019-08-14 20:14] LABS: MAGNESIUM 1.7 mg/dL (1.8-2.4); PHOSPHORUS 3.7 mg/dL (2.5-4.9)
[2019-08-14] MEDS: FUROSEMIDE 100 MG/10 ML VIAL IV SCH ×2 (20:15→23:40)
[2019-08-15] VITALS: BP 142/81
[2019-08-15 04:00] VITALS: BP 125/78
[2019-08-15] MEDS: FUROSEMIDE 100 MG/10 ML VIAL IV SCH (04:33)
[2019-08-15] MEDS: FUROSEMIDE 40 MG/4 ML VIAL IV SCH (07:02)
--- NOTE | 2019-08-15 07:37 | NUR ---
STRATEGIC INSIGHTS LEAD CLOSING NOTE PATIENT IN BED WITH NO SIGN OF ANY DISTRESS. PATIENT ON ROOM AIR WITH NO SIGN OF ANY SOB. SINUS RHYTHM ON THE MONITOR. ALL NEEDS HAVE BEEN MET. ENDORSED PATIENT TO MORNING SHIFT NURSE FOR JANETTE.
--- NOTE | 2019-08-15 07:40 | NUR ---
RN OPENING NOTES RECEIVED PATIENT IN BED, AWAKE, A/O X4. VERBALLY RESPONSIVE AND ABLE TO MAKE NEEDS KNOWN. NO SOB NOTED. DENIES ANY PAIN OR DISCOMFORT AT THE MOMENT. ON TELE MONITOR SR 91. NO ACUTE DISTRESS NOTED.WITH IV ACCESS ON R AC #18, INTACT, PATENT AND FLUSHED WELL. NO SIGNS OF INFILTRATION NOTED. BED ON LOCKED POSITION AND LOCKED. CALL LIGHT WITHIN REACH FOR EASY ACCESS. WILL CONTINUE TO MONITOR.
[2019-08-15 07:46] LABS: BASOPHILS # (AUTO) 0.1 /CMM (0.0-0.2); EOSINOPHILS % (AUTO) 5.8 % (0.0-6.0); HEMATOCRIT 50 % (39-51); HEMOGLOBIN 16.6 g/dL (13.5-17.5); LYMPHOCYTES # (AUTO) 1.1 /CMM (0.8-4.8); LYMPHOCYTES % (AUTO) 13.3 % (20.0-44.0); MEAN CORPUSCULAR HGB CONC 33 g/dl (31.0-36.0); MEAN CORPUSCULAR VOLUME 89 fL (80-96); MONOCYTES # (AUTO) 0.9 /CMM (0.1-1.30); MONOCYTES % (AUTO) 11.7 % (2.0-12.0); NEUTROPHILS # (AUTO) 5.4 /CMM (1.8-8.9); NEUTROPHILS % (AUTO) 68.2 % (43.0-81.0); PLATELET COUNT (AUTO) 239 /CMM (150-450); RED BLOOD CELL COUNT(AUTO) 5.59 MIL/uL (4.5-6.0)
[2019-08-15 08:00] VITALS: BP 154/96
[2019-08-15 08:04] LABS: CREATININE 1.6 mg/dL (0.6-1.3); MAGNESIUM 1.5 mg/dL (1.8-2.4); PHOSPHORUS 4.2 mg/dL (2.5-4.9); POTASSIUM 3.3 mmol/L (3.5-5.1)
[2019-08-15] MEDS: SPIRONOLACTONE 25 MG TABLET PO SCH (08:49)
[2019-08-15] MEDS: ASPIRIN 81 MG TAB.CHEW PO SCH (08:50)
[2019-08-15] MEDS: AMLODIPINE BESYLATE 5 MG TABLET PO SCH (08:50)
[2019-08-15] MEDS: VALSARTAN 80 MG TABLET PO SCH (08:50)
[2019-08-15] MEDS: HEPARIN SODIUM, PORCINE 5000 UNITS/1 ML VIAL SQ SCH (09:01)
[2019-08-15] MEDS ORDERED: CARVEDILOL 6.25 MG TABLET PO SCH (11:00)
[2019-08-15] MEDS ORDERED: Magnesium 1GM/D5W 100ML PREMIX 100 ML IV SCH (11:00)
[2019-08-15] MEDS ORDERED: POTASSIUM CHLORIDE 10 MEQ TABLET.SA PO ONE (11:00)
[2019-08-15 12:07] VITALS: BP 134/81
--- NOTE | 2019-08-15 14:05 | NUR ---
MEDICAL INSURANCE CLAIMS PROCESSOR NOTES PATIENT, A/O X4. DENIES ANY PAIN AT THE MOMENT. NO ACUTE DISTRESS NOTED. MEDICALLY STABLE. DISCUSSED THE DISCHARGE PLANNED AND EXIT COPY HANDED TO PATIENT. OFFERED THE COMM[employer]OURCES BUT PATIENT REFUSED AND SIGNED THE WAIVER. PER PATIENT HIS PARTNER WILL PICK HIM UP. TAP CARD HANDED TO PATIENT. REMOVED IV ACCESS AND TELE MONITOR. BELONGINGS FORM SIGNED BY PATIENT. WAS ASSISTED BY NEL AT THE [facility]
== END 2019-08-15 14:00 | disposition home or self-care (01) | DRG 194 ==
LOC: ER 03:16 → TELE1 05:18 → MEDSG1 08-15 10:46
PROVIDERS: ADMIT Nurse Practitioner Acute Care; ATTEND Nurse Practitioner Acute Care
DX: I11.0 Hypertensive heart disease with heart failure (principal); J96.01 Acute respiratory failure with hypoxia; I21.A1 Myocardial infarction type 2; N17.0 Acute kidney failure with tubular necrosis; E88.09 Other disorders of plasma-protein metabolism, not elsewhere classified; I42.9 Cardiomyopathy, unspecified; F17.210 Nicotine dependence, cigarettes, uncomplicated; G89.29 Other chronic pain; I16.9 Hypertensive crisis, unspecified; Z59.0 Homelessness; Z79.82 Long term (current) use of aspirin; Z87.442 Personal history of urinary calculi; Z91.19 Patient's noncompliance with other medical treatment and regimen; F39 Unspecified mood [affective] disorder; Z86.19 Personal history of other infectious and parasitic diseases; R74.8 Abnormal levels of other serum enzymes; F15.90 Other stimulant use, unspecified, uncomplicated; I50.41 Acute combined systolic (congestive) and diastolic (congestive) heart failure
CPT/HCPCS: 36415; 71045-TC; 76770-TC; 80048-TC; 80061-TC; 80076-TC; 83735-TC; 83880; 83970; 84100-TC; 84484-TC; 85025-TC; 85730-TC; 87081-TC; G0378; J0360; J1644; J1940; J3475

== ENCOUNTER 2020-05-15 14:58 | Emergency (ER) | payer OTHER ==
[~2020-05-15] VITALS: Ht 167.6 cm; Wt 83.9 kg
--- NOTE | 2020-05-15 14:58 | NUR ---
PT BIBSELF, C/O SOB X3-4 DAYS WITH CHEST PAIN 10/10. PT IS AAOX4, NOTED INCREASED RESPIRATION. O2 SAT AT 100% ON RA. HOOKED TO CONTACT CENTER ENGINEER, KEPT RESTED AND COMFORTABLE. WILL CONTINUE TO MONITOR.
--- NOTE | 2020-05-15 15:00 | NUR ---
IV LINE ESTABLISHED BLOOD DRAWN AND SENT TO LAB.
--- NOTE | 2020-05-15 15:05 | NUR ---
PTS O2 SATURATION IS AT 98-100% ON ROOM AIR, HOWEVER, PT IS REQUESTING TO BE PLACED ON O2, BECAUSE HE STATES THAT HE FEELS SHORT OF BREATH. O2 ADMINSTERED 2L VIA NC PER PTS REQUEST. PT IS CURRENTLY SATURATING AT 100%.
--- NOTE | 2020-05-15 15:06 | NUR ---
SEEN AND EXAMINED BY .
[2020-05-15] MEDS ORDERED: LABETALOL HCL IV 100MG VIAL ONE (15:30)
[2020-05-15] MEDS ORDERED: LABETALOL HCL IV 100MG VIAL IV ONE (15:30)
[2020-05-15] MEDS ORDERED: hydrALAZINE HCL IV 20 MG VIAL IV ONE (15:30)
--- NOTE | 2020-05-15 15:33 | NUR ---
ORDERED HYDRALAZINE IV, PER PHARMACY HYDRALAZINE NOT AVAILABLE D/T SHORTAGE. DR. ANDERSON MADE AWARE. DCD HYDRALAZINE AND ORDERED LABETALOL INSTEAD. BP RE-CHECKED PRIOR TO ADMINSTRATION OF LABETALOL NOTED AT 180/134 HR 98. LABETALONG 10MG IVPUSH ADMINISTERED ORDERED.
[2020-05-15 15:35] LABS: BASOPHILS # (AUTO) 0.3 /CMM (0.0-0.2); BASOPHILS % (AUTO) 2.8 % (0.0-2.0); HEMATOCRIT 46 % (39-51); HEMOGLOBIN 15.4 g/dL (13.5-17.5); LYMPHOCYTES # (AUTO) 0.8 /CMM (0.8-4.8); LYMPHOCYTES % (AUTO) 8.2 % (20.0-44.0); MEAN CORPUSCULAR HGB CONC 33 g/dl (31.0-36.0); MEAN CORPUSCULAR VOLUME 93 fL (80-96); MONOCYTES # (AUTO) 0.9 /CMM (0.1-1.30); MONOCYTES % (AUTO) 8.9 % (2.0-12.0); NEUTROPHILS # (AUTO) 7.9 /CMM (1.8-8.9); NEUTROPHILS % (AUTO) 76.1 % (43.0-81.0); PLATELET COUNT (AUTO) 214 /CMM (150-450); RED BLOOD CELL COUNT(AUTO) 4.98 MIL/uL (4.5-6.0); WHITE BLOOD COUNT (AUTO) 10.3 K/uL (4.3-11.0)
[2020-05-15 15:47] LABS: CALCIUM, SERUM 8.5 mg/dL (8.5-10.1); CREATININE 1.2 mg/dL (0.6-1.3); POTASSIUM 3.9 mmol/L (3.5-5.1)
[2020-05-15 15:59] LABS: ALBUMIN 3.4 g/dL (3.4-5.0); BILIRUBIN,DIRECT 0.8 mg/dL (0.0-0.2); BILIRUBIN,TOTAL 1.6 mg/dL (0.2-1.0); TOTAL PROTEIN, SERUM 7.6 g/dL (6.4-8.2)
--- NOTE | 2020-05-15 16:14 | NUR ---
REPORTED TROPONIN LEVEL [place] 0.058 [place] [id number] LI.
[2020-05-15] MEDS ORDERED: FUROSEMIDE 40 MG/4 ML VIAL ONE (16:16)
[2020-05-15] MEDS ORDERED: FUROSEMIDE 40 MG TABLET PO ONE (16:30)
--- NOTE | 2020-05-15 16:49 | NUR ---
CALLED LAB REGARDING NEED FOR REPEAT TROPONIN AT 1800
--- NOTE | 2020-05-15 18:40 | NUR ---
DR. LI MADE AWARE OF PTS CURRENT BP AND HR. BP-168/110 AND HR-89. PT IS CURRENTLY SLEEPING IN THE BED. NO CARDIAC OR RESPIRATORY DISTRESS NOTED. NO SOB NOTED.
--- NOTE | 2020-05-15 19:11 | NUR ---
PT SLEEPING. NO S/S OF PAIN OR DISCOMFORT. VS CHECKED AND LOGGED (SEE INTERVENTIONS FOR VS VALUES)
[2020-05-15 19:35] VITALS: BP 167/115
== END 2020-05-15 19:37 | disposition home or self-care (01) ==
LOC: ER 14:58
DX: I11.0 Hypertensive heart disease with heart failure (principal); I50.9 Heart failure, unspecified; R07.89 Other chest pain; F17.210 Nicotine dependence, cigarettes, uncomplicated; Z91.11 Patient's noncompliance with dietary regimen; Z79.82 Long term (current) use of aspirin; Z79.899 Other long term (current) drug therapy
CPT/HCPCS: 36415; 71045; 80048; 80076; 83880; 84484 ×2; 85025; 85730; 93005 ×2; 96374; 99285; J1940; J3490

== ENCOUNTER 2024-11-26 02:12 | Inpatient (IN) | payer OTHER ==
[~2024-11-26] VITALS: Ht 165.1 cm; Wt 86.4 kg
[~2024-11-26 02:12] MED LIST changes: +CARV6.25 PO; +FURO-145 PO; +HYDR-4077 PO; +ISOS30TA86 PO; -SPIR25TA PO; -VALS80TA2 PO
[2024-11-26] MEDS: NITROGLYCERIN 0.4 MG/TAB BOTTLE SL ONE (02:30)
[2024-11-26] MEDS ORDERED: LIDOCAINE VISCOUS 2% UD 15 ML UDC ONE (02:44)
[2024-11-26] MEDS ORDERED: NITROGLYCERIN 0.4 MG/TAB BOTTLE ONE (02:45)
[2024-11-26] MEDS ORDERED: ASPIRIN 325 MG TABLET ONE (02:45)
[2024-11-26] MEDS: LIDOCAINE VISCOUS 2% UD 15 ML UDC MM ONE (02:49)
[2024-11-26] MEDS: ASPIRIN 325 MG TABLET PO ONE (02:49)
[2024-11-26 03:13] LABS: BASOPHILS # (AUTO) 0.1 K/uL (0.0-0.2); BASOPHILS % (AUTO) 0.7 % (0.0-2.0); EOSINOPHILS # (AUTO) 0.2 K/uL (0.0-0.7); EOSINOPHILS % (AUTO) 2.6 % (0.0-6.0); HEMATOCRIT 27 % (39-51); HEMOGLOBIN 8.6 g/dL (13.5-17.5); LYMPHOCYTES % (AUTO) 10.5 % (20.0-44.0); MEAN CORPUSCULAR HEMOGLOBIN 29 PG (26.0-33.0); MEAN CORPUSCULAR HGB CONC 33 g/dl (31.0-36.0); MEAN CORPUSCULAR VOLUME 89 fL (80-96); MONOCYTES % (AUTO) 10.9 % (2.0-12.0); NEUTROPHILS % (AUTO) 75.3 % (43.0-81.0); PLATELET COUNT (AUTO) 264 K/uL (150-450); RED BLOOD CELL COUNT(AUTO) 2.97 MIL/uL (4.5-6.0); RED CELL DISTRIBUTION WIDTH 15.7 % (11.5-15.0); WHITE BLOOD COUNT (AUTO) 9.3 K/uL (4.3-11.0)
[2024-11-26 03:20] LABS: CARBON DIOXIDE 30 mmol/L (21-32); CHLORIDE 98 mmol/L (98-107); CREATININE 1.6 mg/dL (0.6-1.3); GLUCOSE 121 mg/dL (74-106); POTASSIUM 3.6 mmol/L (3.5-5.1); SODIUM SERUM 134 mmol/L (136-145); UREA NITROGEN, BLOOD 30 mg/dL (7-18)
[2024-11-26] MEDS ORDERED: MAG HYDROX/AL HYDROX/SIMETH 30 ML UDC ONE (03:20)
[2024-11-26] MEDS: MAG HYDROX/AL HYDROX/SIMETH 30 ML UDC PO ONE (03:24)
[2024-11-26 03:32] LABS: ALANINE AMINOTRANSFERASE 32 U/L (12-78); ALBUMIN 2.3 g/dL (3.4-5.0); ALKALINE PHOSPHATASE 96 U/L (46-116); ASPARTATE AMINOTRANSFERASE 25 U/L (15-37); BILIRUBIN,TOTAL 1.1 mg/dL (0.2-1.0); NT-PRO BNP > 25000 pg/mL (0-125); TOTAL PROTEIN, SERUM 6.5 g/dL (6.4-8.2)
[2024-11-26 03:34] LABS: INR 1.08 (0.91-1.10); PARTIAL THROMBOPLASTIN TIME 28.7 SEC (24.3-34.3); PROTHROMBIN TIME 11.4 SECS (9.2-11.1)
[2024-11-26 03:45] LABS: CALCIUM, SERUM 7.8 mg/dL (8.5-10.1)
[2024-11-26] MEDS ORDERED: VANCOMYCIN 1 GM /D5W 250 ML PB IV ONE (03:58)
[2024-11-26] MEDS ORDERED: FUROSEMIDE 40 MG/4 ML VIAL ONE (03:58)
[2024-11-26] MEDS: VANCOMYCIN 1 GM in IV D5W 250 ML IV ONE (04:00)
[2024-11-26] MEDS: FUROSEMIDE 40 MG/4 ML VIAL IV ONE (04:00)
[2024-11-26] MEDS ORDERED: TEMAZEPAM 15 MG CAPSULE PO PRN (04:30)
[2024-11-26] MEDS ORDERED: MAG HYDROX/AL HYDROX/SIMETH 30 ML UDC PO PRN (04:30)
[2024-11-26] MEDS ORDERED: ONDANSETRON HCL/PF 4 MG/2 ML VIAL IVP PRN (04:30)
[2024-11-26] MEDS ORDERED: MAGNESIUM HYDROXIDE 30 ML UDC PO PRN (04:30)
[2024-11-26] MEDS ORDERED: Z GUARD REMEDY 4 OZ OINT TP PRN (04:30)
[2024-11-26 04:37] VITALS: O2SAT 97
[2024-11-26] MEDS ORDERED: ACETAMINOPHEN 325 MG TABLET ONE (04:40)
[2024-11-26] MEDS: ACETAMINOPHEN 325 MG TABLET PO PRN (04:42)
[2024-11-26 05:20] VITALS: BP 138/113; TEMP 97.3; O2SAT 100
[2024-11-26] MEDS: VANCOMYCIN 500 MG in IV D5W 100ml IV ONE (06:49)
[2024-11-26] MEDS: HYDROCODONE/APAP 5/325MG TABLET PO PRN (06:56)
[2024-11-26] MEDS: PANTOPRAZOLE 40 MG TABLET.DR PO SCH (06:56)
[2024-11-26 08:00] VITALS: BP 140/90; TEMP 97.7; O2SAT 99
[2024-11-26] MEDS: FUROSEMIDE 40 MG/4 ML VIAL IV SCH (08:04)
[2024-11-26] MEDS: AMLODIPINE BESYLATE 5 MG TABLET PO SCH (10:18)
[2024-11-26] MEDS: CARVEDILOL 6.25 MG TABLET PO SCH (10:19)
[2024-11-26] MEDS: hydrALAZINE HCL 50 MG TABLET PO SCH (10:19)
[2024-11-26] MEDS: ASPIRIN 81 MG TAB.CHEW PO SCH (10:19)
[2024-11-26] MEDS: ISOSORBIDE MONONITRATE (30MG) 30 MG TAB.SR.24H PO SCH (10:20)
[2024-11-26 10:26] LABS: APPEARANCE,URINE CLEAR (CLEAR); BILIRUBIN,URINE NEGATIVE (NEGATIVE); BLOOD, URINE NEGATIVE Ery/uL (NEGATIVE); COLOR,URINE YELLOW (YELLOW); KETONES,URINE NEGATIVE (NEGATIVE); LEUKOCYTE ESTERASE ,URINE NEGATIVE (NEGATIVE); NITRITE, URINE NEGATIVE (NEGATIVE); PH,URINE 5.5 (5.0-8.0); PROTEIN,URINE NEGATIVE (NEGATIVE); UGLUCOSE NEGATIVE (NEGATIVE); UROBILINOGEN,URINE 0.2 EU/dL (0.2)
[2024-11-26 10:35] LABS: URINE SODIUM, RANDOM 101 mmol/l (40-220)
[2024-11-26 10:39] LABS: CREATININE, URINE < 13.0 MG/DL (30.0-125.0)
[2024-11-26] MEDS: POTASSIUM CHLORIDE 20 MEQ TAB.PRT.SR PO SCH (11:00)
[2024-11-26] MEDS: FUROSEMIDE 100 MG/10 ML VIAL IV SCH (11:02)
[2024-11-26 11:43] LABS: EOSINOPHIL,URINE None Seen
[2024-11-26] MEDS: UREA 10% -AHA 4% CREAM 57 GM TUBE TP ONE (13:03)
[2024-11-26] MEDS: THERAHONEY GEL 1.5 OZ TUBE TP SCH (13:04)
[2024-11-26 16:00] VITALS: BP 115/82; TEMP 98.2; O2SAT 100
[2024-11-26] MEDS: VANCOMYCIN 750 MG in IV D5W 250 ML IV SCH (19:50)
[2024-11-26 20:00] VITALS: BP 113/82; TEMP 97.7; O2SAT 98
[2024-11-27] VITALS: BP 118/77; TEMP 97.8; O2SAT 100
[2024-11-27 06:18] VITALS: BP 118/73; TEMP 98.2; O2SAT 100
[2024-11-27 07:53] LABS: BASOPHILS # (AUTO) 0.1 K/uL (0.0-0.2); BASOPHILS % (AUTO) 0.8 % (0.0-2.0); EOSINOPHILS # (AUTO) 0.3 K/uL (0.0-0.7); EOSINOPHILS % (AUTO) 3.4 % (0.0-6.0); HEMATOCRIT 25 % (39-51); HEMOGLOBIN 8.4 g/dL (13.5-17.5); LYMPHOCYTES # (AUTO) 0.8 K/uL (0.8-4.8); LYMPHOCYTES % (AUTO) 10.6 % (20.0-44.0); MEAN CORPUSCULAR HEMOGLOBIN 29 PG (26.0-33.0); MEAN CORPUSCULAR HGB CONC 33 g/dl (31.0-36.0); MEAN CORPUSCULAR VOLUME 88 fL (80-96); MONOCYTES # (AUTO) 0.8 K/uL (0.1-1.30); MONOCYTES % (AUTO) 10.2 % (2.0-12.0); NEUTROPHILS # (AUTO) 5.9 K/uL (1.8-8.9); PLATELET COUNT (AUTO) 251 K/uL (150-450); RED BLOOD CELL COUNT(AUTO) 2.85 MIL/uL (4.5-6.0); RED CELL DISTRIBUTION WIDTH 15.2 % (11.5-15.0); WHITE BLOOD COUNT (AUTO) 7.8 K/uL (4.3-11.0)
[2024-11-27 08:00] VITALS: BP 131/90; TEMP 97.9; O2SAT 96
[2024-11-27 08:16] LABS: ALBUMIN 2.1 g/dL (3.4-5.0); BILIRUBIN,TOTAL 0.9 mg/dL (0.2-1.0); CALCIUM, SERUM 7.6 mg/dL (8.5-10.1); CREATININE 1.9 mg/dL (0.6-1.3); MAGNESIUM 1.7 mg/dL (1.8-2.4); PHOSPHORUS 2.8 mg/dL (2.5-4.9)
[2024-11-27 08:36] VITALS: BP 131/90
[2024-11-27] MEDS: Magnesium 1GM/D5W 100ML PREMIX 100 ML IV SCH (09:00)
[2024-11-27] MEDS: FUROSEMIDE 40 MG TABLET PO SCH (09:00)
[2024-11-27] MEDS ORDERED: CEPH-570 PO (09:48)
[2024-11-27] MEDS ORDERED: FURO40TA5 PO (09:48)
[2024-11-27 10:48] LABS: AMPHETAMINE, URINE NEGATIVE (NEGATIVE); BARBITURATE, URINE NEGATIVE (NEGATIVE); BENZODIAZEPINE, URINE NEGATIVE (NEGATIVE); CANNABINOID, URINE NEGATIVE (NEGATIVE); COCCAINE, URINE NEGATIVE (NEGATIVE); OPIATE, URINE NEGATIVE (NEGATIVE); PHENCYCLIDINE SCREEN,URINE NEGATIVE (NEGATIVE)
[2024-11-27] MEDS ORDERED: VANCOMYCIN HCL 1.25 GM in IV D5W 250 ML IV SCH (22:00)
[2024-11-28 09:09] LABS: PTH, INTACT 92 pg/mL (15-65)
== END 2024-11-27 17:06 | disposition left against medical advice (07) | DRG 194 ==
LOC: ER 02:13 → TELE 04:21
PROVIDERS: ADMIT Student in an Organized Health Care Education/Training Program; ATTEND Student in an Organized Health Care Education/Training Program
DX: I13.0 Hypertensive heart and chronic kidney disease with heart failure and stage 1 through stage 4 chronic kidney disease, or unspecified chronic kidney disease (principal); J96.01 Acute respiratory failure with hypoxia; I42.9 Cardiomyopathy, unspecified; E44.0 Moderate protein-calorie malnutrition; E87.1 Hypo-osmolality and hyponatremia; E83.9 Disorder of mineral metabolism, unspecified; K74.60 Unspecified cirrhosis of liver; I50.23 Acute on chronic systolic (congestive) heart failure; N49.2 Inflammatory disorders of scrotum; D64.9 Anemia, unspecified; E66.9 Obesity, unspecified; N18.9 Chronic kidney disease, unspecified; Z53.29 Procedure and treatment not carried out because of patient's decision for other reasons; Z79.82 Long term (current) use of aspirin; Z20.822 Contact with and (suspected) exposure to COVID-19; S81.812A Laceration without foreign body, left lower leg, initial encounter; X58.XXXA Exposure to other specified factors, initial encounter; Y93.9 Activity, unspecified; Y92.009 Unspecified place in unspecified non-institutional (private) residence as the place of occurrence of the external cause; N43.3 Hydrocele, unspecified; I48.92 Unspecified atrial flutter; F17.210 Nicotine dependence, cigarettes, uncomplicated; Z91.199 Patient's noncompliance with other medical treatment and regimen due to unspecified reason; I34.0 Nonrheumatic mitral (valve) insufficiency; L98.8 Other specified disorders of the skin and subcutaneous tissue; N26.1 Atrophy of kidney (terminal); K57.30 Diverticulosis of large intestine without perforation or abscess without bleeding; F19.11 Other psychoactive substance abuse, in remission; Z68.31 Body mass index [BMI] 31.0-31.9, adult; M94.0 Chondrocostal junction syndrome [Tietze]
CPT/HCPCS: 36415; 71045-TC; 76870-TC; 80048-TC; 80053-TC; 80076-TC; 82550-TC; 82570-TC; 83735-TC; 83880; 83970; 84100-TC; 84155; 84165; 84300-TC; 84484-TC; 85025-TC; 85730-TC; 87081-TC; A4223; A6403; G0378; J1938; J3370; J3371; J3475; J7050; J7060